=== PATIENT | male | born 1960 | race African-American/Black ===

== ENCOUNTER 2017-11-17 14:28 | Inpatient (IN) | payer MEDICAID, OTHER ==
[~2017-11-17] VITALS: Ht 185.4 cm; Wt 70.3 kg
[~2017-11-17 14:28] MED LIST: AMLO1CAP6 PO; CARI350T27 PO; TAMS-11 PO; VICODIN PO; ZOLP10TA6 PO
[2017-11-17] MEDS ORDERED: SODIUM CHLORIDE 0.9% 1,000 ML IV ONE (14:57)
[2017-11-17] MEDS ORDERED: ONDANSETRON HCL 4MG/2ML VIAL IV STA (14:57)
[2017-11-17] MEDS ORDERED: MORPHINE SULFATE 4 MG/ML CPJ (NOT FOR IM USE) IV STA (14:57)
[2017-11-17 15:35] LABS: CHLORIDE 103 mEq/L (98-107); PROTHROMBIN TIME 9.9 sec (9.4-11.6)
[2017-11-17 15:40] LABS: BASOPHILS % 0.2 % (0.0-2.0); EOSINOPHILS % 1.4 % (0.0-5.0); HEMATOCRIT. 36.8 % (42.0-52.0); HEMOGLOBIN. 12.5 g/dL (14.0-18.0); LYMPHOCYTES % 20.2 % (20.0-50.0); MEAN CORPUSCULAR HEMOGLOBIN 31.2 pg (28.0-32.0); MEAN CORPUSCULAR VOLUME 91.4 fL (80.0-94.0); MEAN PLATELET VOLUME 7.9 fl (7.4-10.4); NEUTROPHILS % 69.2 % (40.0-76.0); PLATELET 232 x1000/uL (130-400); RED BLOOD CELL COUNT 4.02 mill/uL (4.7-6.1); RED CELL DISTRIBUTION WIDTH 14.7 % (11.6-14.6)
[2017-11-17] MEDS ORDERED: IOHEXOL-300 100 ML BOTTLE ONE (17:54)
[2017-11-17 18:13] LABS: CLARITY URINE CLEAR (CLEAR); COLOR URINE YELLOW (YELLOW); KETONES URINE TRACE (NEGATIVE); LEUKOCYTE ESTERASE URINE NEGATIVE (NEGATIVE); NITRITE URINE NEGATIVE (NEGATIVE); OCCULT BLOOD URINE NEGATIVE (NEGATIVE); PH URINE 5.5 (4.5-8.0); PROTEIN URINE NEGATIVE (NEGATIVE); SPECIFIC GRAVITY URINE 1.026 (1.005-1.030); UROBILINOGEN URINE 0.2 E.U./dL (0.2-1.0)
[2017-11-17 18:23] LABS: *AMPHETAMINES SCREEN URINE NEGATIVE (NEGATIVE)
[2017-11-17 18:25] LABS: *BARBITURATES SCREEN URINE NEGATIVE (NEGATIVE); *BENZODIAZEPINES SCREEN URINE PRESUMTIVE POSITIVE (NEGATIVE); *COCAINE SCREEN URINE NEGATIVE (NEGATIVE); CANNABINOID URINE SCREEN NEGATIVE (NEGATIVE); METHADONE URINE SCREEN NEGATIVE (NEGATIVE); OPIATES URINE SCREEN PRESUMTIVE POSITIVE (NEGATIVE); PHENCYCLIDINE URINE SCREEN NEGATIVE (NEGATIVE)
[2017-11-17] MEDS ORDERED: FINA5TAB11 PO (18:45)
[2017-11-17] MEDS ORDERED: BICA50TA2 PO (18:48)
[2017-11-17] MEDS ORDERED: HYDROMORPHONE HCL/PF 2MG/ML CPJ IV PRN ×2 (19:15→19:45)
[2017-11-17] MEDS ORDERED: CLONIDINE 0.1MG TABLET PO PRN (19:15)
[2017-11-17] MEDS ORDERED: ONDANSETRON HCL 4MG/2ML VIAL IV PRN (19:15)
[2017-11-17] MEDS ORDERED: MVI, ADULT NO.1 10 ML, FOLIC ACID 1 MG, THIAMINE HCL 100 MG in SODIUM CHLORIDE 0.9% 1,0... IV SCH ×4 (20:00)
[2017-11-17] MEDS: ACETAMINOPHEN 325MG TABLET PO PRN (20:42)
[2017-11-17 21:15] VITALS: BP 140/77
[2017-11-17] MEDS: HYDROMORPHONE HCL/PF 2MG/ML CPJ IV PRN (23:54)
[2017-11-18] VITALS: BP 144/86
[2017-11-18] MEDS: ACETAMINOPHEN 325MG TABLET PO PRN (02:27)
[2017-11-18] MEDS: HYDROMORPHONE HCL/PF 2MG/ML CPJ IV PRN ×5 (03:58→20:31)
[2017-11-18 04:00] VITALS: BP 132/81
[2017-11-18 07:39] LABS: BASOPHILS % 0.2 % (0.0-2.0); EOSINOPHILS % 2.3 % (0.0-5.0); HEMATOCRIT. 32.8 % (42.0-52.0); HEMOGLOBIN. 11.6 g/dL (14.0-18.0); LYMPHOCYTES % 26.3 % (20.0-50.0); MEAN CORPUSCULAR HEMOGLOBIN 32.5 pg (28.0-32.0); MEAN CORPUSCULAR VOLUME 91.5 fL (80.0-94.0); MEAN PLATELET VOLUME 8.3 fl (7.4-10.4); MONOCYTES % 9.5 % (2.0-8.0); NEUTROPHILS % 61.7 % (40.0-76.0); PLATELET 222 x1000/uL (130-400); RED BLOOD CELL COUNT 3.59 mill/uL (4.7-6.1); RED CELL DISTRIBUTION WIDTH 14.7 % (11.6-14.6)
[2017-11-18 08:00] VITALS: BP 127/81
[2017-11-18] MEDS: FAMOTIDINE 20MG TABLET PO SCH ×2 (08:20→20:59)
[2017-11-18] MEDS: AMLODIPINE 5MG TABLET PO SCH (08:21)
[2017-11-18] MEDS: FINASTERIDE 5MG TABLET PO SCH (08:22)
[2017-11-18] MEDS: BENAZEPRIL 10MG TABLET PO SCH (08:22)
[2017-11-18] MEDS: ENOXAPARIN 40MG/0.4ML SYR SUBCUT SCH (08:23)
[2017-11-18 08:24] LABS: CHLORIDE 107 mEq/L (98-107)
[2017-11-18] MEDS: CARISOPRODOL 350 MG TABLET PO SCH ×3 (08:26→16:15)
[2017-11-18 08:31] LABS: LDL CHOLESTEROL 80 mg/dL (5-100)
[2017-11-18 08:32] LABS: HDL CHOLESTEROL 82 mg/dL (40-59)
[2017-11-18] MEDS ORDERED: BICALUTAMIDE 50 MG TABLET PO SCH (09:00)
[2017-11-18] MEDS ORDERED: TAMSULOSIN HCL 0.4MG SR CAPSULE PO SCH (09:00)
[2017-11-18 12:00] VITALS: BP 116/68
[2017-11-18] MEDS: LIPASE/PROTEASE/AMYLASE 4,200/14,200/24,600 UNITS CAP DR PO SCH ×2 (13:03→17:15)
[2017-11-18 14:01] LABS: HEPATITIS B SURFACE ANTIGEN NEGATIVE
[2017-11-18 14:29] LABS: HEPATITIS B CORE AB IGM NEGATIVE
[2017-11-18 14:31] LABS: HEPATITIS A AB IGM NEGATIVE (NEGATIVE)
[2017-11-18] MEDS: NICOTINE 21MG PATCH TD SCH (15:43)
[2017-11-18 16:21] VITALS: BP 124/88
[2017-11-18 20:00] VITALS: BP 121/77
[2017-11-18] MEDS: TAMSULOSIN HCL 0.4MG SR CAPSULE PO SCH (20:59)
[2017-11-19] VITALS: BP 118/81
[2017-11-19] MEDS: HYDROMORPHONE HCL/PF 2MG/ML CPJ IV PRN ×2 (00:24→08:22)
[2017-11-19 04:00] VITALS: BP 123/77
[2017-11-19 06:58] LABS: BASOPHILS % 0.2 % (0.0-2.0); HEMATOCRIT. 33.4 % (42.0-52.0); HEMOGLOBIN. 11.8 g/dL (14.0-18.0); LYMPHOCYTES % 31.5 % (20.0-50.0); MEAN CORPUSCULAR HEMOGLOBIN 32.3 pg (28.0-32.0); MEAN CORPUSCULAR VOLUME 91.8 fL (80.0-94.0); MEAN PLATELET VOLUME 8.4 fl (7.4-10.4); MONOCYTES % 11.1 % (2.0-8.0); NEUTROPHILS % 55.2 % (40.0-76.0); PLATELET 239 x1000/uL (130-400); RED BLOOD CELL COUNT 3.64 mill/uL (4.7-6.1); RED CELL DISTRIBUTION WIDTH 14.8 % (11.6-14.6)
[2017-11-19 07:32] LABS: CHLORIDE 103 mEq/L (98-107)
[2017-11-19 07:37] LABS: AMYLASE 184 IU/L (25-115)
[2017-11-19] MEDS: TAMSULOSIN HCL 0.4MG SR CAPSULE PO SCH (08:21)
[2017-11-19] MEDS: AMLODIPINE 5MG TABLET PO SCH (08:21)
[2017-11-19] MEDS: BENAZEPRIL 10MG TABLET PO SCH (08:21)
[2017-11-19] MEDS: FAMOTIDINE 20MG TABLET PO SCH (08:21)
[2017-11-19] MEDS: CARISOPRODOL 350 MG TABLET PO SCH (08:21)
[2017-11-19] MEDS: FINASTERIDE 5MG TABLET PO SCH (08:21)
[2017-11-19] MEDS: ENOXAPARIN 40MG/0.4ML SYR SUBCUT SCH (08:22)
[2017-11-19] MEDS: NICOTINE 21MG PATCH TD SCH (08:22)
[2017-11-19] MEDS: LIPASE/PROTEASE/AMYLASE 4,200/14,200/24,600 UNITS CAP DR PO SCH (08:22)
[2017-11-19 09:08] VITALS: BP 128/78
== END 2017-11-19 10:15 | disposition home or self-care (01) | DRG 282 ==
LOC: ER 14:28 → ENRESERV 20:26 → 8WST 21:15
PROVIDERS: ADMIT Internal Medicine Geriatric Medicine; ATTEND Internal Medicine Geriatric Medicine
DX: K85.90 Acute pancreatitis without necrosis or infection, unspecified (principal); C61 Malignant neoplasm of prostate; G90.9 Disorder of the autonomic nervous system, unspecified; Z89.611 Acquired absence of right leg above knee; F11.20 Opioid dependence, uncomplicated; D63.8 Anemia in other chronic diseases classified elsewhere; I10 Essential (primary) hypertension; G89.4 Chronic pain syndrome; F10.20 Alcohol dependence, uncomplicated; Z99.3 Dependence on wheelchair; Z85.07 Personal history of malignant neoplasm of pancreas; Z79.899 Other long term (current) drug therapy; Z92.3 Personal history of irradiation; K86.1 Other chronic pancreatitis
CPT/HCPCS: 36415; 71045; 74177; 80048; 80053; 80061; 80076; 80305; 81003; 82150; 83690; 83880; 84484; 85025; 85610; 86301; 86705; 86709; 86803; 87340; 93005; 96361; 96374; 96375; 97161; 99285; G0482; J1170; J1650; J2270; J2405; J3411; J3490; J7030; Q9967

== ENCOUNTER 2018-03-09 17:44 | Emergency (ER) | payer MEDICAID, OTHER ==
[~2018-03-09] VITALS: Ht 185.4 cm; Wt 71.0 kg
[~2018-03-09 17:44] MED LIST changes: +BICA50TA2 PO; +FINA5TAB11 PO
[2018-03-09] MEDS ORDERED: HYDROCODONE/ACETAMINOPHEN 5/325MG TABLET PO STA (18:06)
[2018-03-09 19:21] LABS: CLARITY URINE CLEAR (CLEAR); COLOR URINE DARK YELLOW (YELLOW); KETONES URINE NEGATIVE (NEGATIVE); LEUKOCYTE ESTERASE URINE TRACE (NEGATIVE); NITRITE URINE POSITIVE (NEGATIVE); OCCULT BLOOD URINE NEGATIVE (NEGATIVE); PROTEIN URINE NEGATIVE (NEGATIVE); SPECIFIC GRAVITY URINE 1.013 (1.005-1.030)
[2018-03-09 19:24] LABS: BASOPHILS % 0.9 % (0.0-2.0); HEMATOCRIT. 36.8 % (42.0-52.0); HEMOGLOBIN. 12.6 g/dL (14.0-18.0); MEAN CORPUSCULAR HEMOGLOBIN 31.7 pg (28.0-32.0); MEAN CORPUSCULAR VOLUME 92.8 fL (80.0-94.0); MEAN PLATELET VOLUME 9.3 fl (7.4-10.4); MONOCYTES % 9.5 % (2.0-8.0); NEUTROPHILS % 67.6 % (40.0-76.0); PLATELET 313 x1000/uL (130-400); RED BLOOD CELL COUNT 3.97 mill/uL (4.7-6.1); RED CELL DISTRIBUTION WIDTH 15.1 % (11.6-14.6)
[2018-03-09 19:27] LABS: CHLORIDE 107 mEq/L (98-107)
[2018-03-09] MEDS ORDERED: LORAZEPAM 2MG/ML CPJ IV ONE (20:00)
[2018-03-09] MEDS ORDERED: CEFTRIAXONE 1 G PREMIX 50 ML IV ONE (21:00)
[2018-03-09] MEDS ORDERED: HYDROMORPHONE HCL/PF 2MG/ML CPJ IV ONE (21:00)
[2018-03-09 23:08] VITALS: BP 131/77
== END 2018-03-09 23:09 | disposition home or self-care (01) ==
LOC: ER 18:03
DX: R33.9 Retention of urine, unspecified (principal); N39.0 Urinary tract infection, site not specified; I10 Essential (primary) hypertension; F17.200 Nicotine dependence, unspecified, uncomplicated; Z98.890 Other specified postprocedural states
CPT/HCPCS: 36415; 51702; 80053; 81003; 85025; 87086; 96365; 96375; 99284; 99406; J0696; J1170; J2060; Z7610; A4315

== ENCOUNTER 2018-05-28 23:33 | Emergency (ER) | payer OTHER ==
[~2018-05-28] VITALS: Ht 172.7 cm; Wt 72.0 kg
[~2018-05-28 23:33] MED LIST changes: -BICA50TA2 PO; +BICA50TA48 PO
[2018-05-29 01:49] LABS: BASOPHILS % 1.3 % (0.0-2.0); EOSINOPHILS % 1.5 % (0.0-5.0); HEMATOCRIT. 42.8 % (42.0-52.0); HEMOGLOBIN. 14.3 g/dL (14.0-18.0); LYMPHOCYTES % 35.3 % (20.0-50.0); MEAN CORPUSCULAR HEMOGLOBIN 32.1 pg (28.0-32.0); MEAN CORPUSCULAR VOLUME 96.2 fL (80.0-94.0); MEAN PLATELET VOLUME 7.5 fl (7.4-10.4); MONOCYTES % 11.6 % (2.0-8.0); NEUTROPHILS % 50.3 % (40.0-76.0); PLATELET 309 x1000/uL (130-400); RED BLOOD CELL COUNT 4.45 mill/uL (4.7-6.1); RED CELL DISTRIBUTION WIDTH 17.4 % (11.6-14.6)
[2018-05-29 01:55] LABS: CLARITY URINE CLEAR (CLEAR); COLOR URINE YELLOW (YELLOW); KETONES URINE NEGATIVE (NEGATIVE); LEUKOCYTE ESTERASE URINE NEGATIVE (NEGATIVE); NITRITE URINE NEGATIVE (NEGATIVE); OCCULT BLOOD URINE NEGATIVE (NEGATIVE); PROTEIN URINE NEGATIVE (NEGATIVE); SPECIFIC GRAVITY URINE 1.003 (1.005-1.030); UROBILINOGEN URINE 0.2 E.U./dL (0.2-1.0)
[2018-05-29 01:58] LABS: CHLORIDE 110 mEq/L (98-107)
[2018-05-29] MEDS ORDERED: ACETAMINOPHEN 325MG TABLET PO ONE (02:00)
[2018-05-29 02:15] LABS: *AMPHETAMINES SCREEN URINE NEGATIVE (NEGATIVE); *BARBITURATES SCREEN URINE NEGATIVE (NEGATIVE); *BENZODIAZEPINES SCREEN URINE PRESUMTIVE POSITIVE (NEGATIVE); *COCAINE SCREEN URINE NEGATIVE (NEGATIVE); CANNABINOID URINE SCREEN NEGATIVE (NEGATIVE); METHADONE URINE SCREEN NEGATIVE (NEGATIVE); OPIATES URINE SCREEN PRESUMTIVE POSITIVE (NEGATIVE); PHENCYCLIDINE URINE SCREEN NEGATIVE (NEGATIVE)
[2018-05-29 03:33] LABS: ETHANOL BLOOD 358 mg/dL
[2018-05-29] MEDS ORDERED: FOLIC ACID 1 MG, THIAMINE HCL 100 MG, MVI, ADULT NO.1 10 ML in DEXTROSE 5% WATER 1,000 ML IV ONE ×4 (03:45)
[2018-05-29 06:22] VITALS: BP 102/69
== END 2018-05-29 07:17 | disposition home or self-care (01) ==
LOC: ER 23:43
DX: F10.129 Alcohol abuse with intoxication, unspecified (principal); I10 Essential (primary) hypertension; Z98.890 Other specified postprocedural states; Y90.8 Blood alcohol level of 240 mg/100 ml or more; Z79.899 Other long term (current) drug therapy
CPT/HCPCS: 36415; 70450; 71045; 80053; 80305; 81003; 85025; 96365; 96366; 99285; G0482; J3411; J3490; J7070; Z7610

== ENCOUNTER 2018-08-12 11:07 | Emergency (ER) | payer MEDICAID, OTHER ==
[~2018-08-12] VITALS: Ht 182.9 cm; Wt 75.0 kg
[2018-08-12 11:12] VITALS: BP 135/78
[2018-08-12] MEDS ORDERED: HYDROCODONE/ACETAMINOPHEN 5/325MG TABLET PO ONE (12:30)
[2018-08-12] MEDS ORDERED: HYDROCODONE/ACETAMINOPHEN 5/325MG TABLET ONE (12:54)
[2018-08-12] MEDS ORDERED: CEPHALEXIN 250MG CAPSULE PO ONE (13:00)
== END 2018-08-12 13:12 | disposition home or self-care (01) ==
LOC: ER 11:55
DX: S60.466A Insect bite (nonvenomous) of right little finger, initial encounter (principal); F17.200 Nicotine dependence, unspecified, uncomplicated; Z79.899 Other long term (current) drug therapy; W57.XXXA Bitten or stung by nonvenomous insect and other nonvenomous arthropods, initial encounter; Y93.89 Activity, other specified; Y92.89 Other specified places as the place of occurrence of the external cause; Y99.8 Other external cause status
CPT/HCPCS: 99283

== ENCOUNTER 2020-05-14 14:21 | Emergency (ER) | payer OTHER ==
[~2020-05-14] VITALS: Ht 172.7 cm; Wt 75.0 kg
[2020-05-14] MEDS ORDERED: DIAZEPAM 2 MG TABLET PO ONE (18:00)
[2020-05-14] MEDS ORDERED: HYDROCODONE/ACETAMINOPHEN 5/325MG TABLET PO ONE (18:00)
[2020-05-14 18:01] LABS: EOSINOPHILS % 2.5 % (0.0-5.0); HEMATOCRIT. 36.6 % (42.0-52.0); HEMOGLOBIN. 12.2 g/dL (14.0-18.0); LYMPHOCYTES % 23.7 % (20.0-50.0); MEAN CORPUSCULAR HEMOGLOBIN 29.4 pg (28.0-32.0); MEAN CORPUSCULAR VOLUME 87.9 fL (80.0-94.0); MEAN PLATELET VOLUME 8.1 fl (7.4-10.4); MONOCYTES % 7.7 % (2.0-8.0); NEUTROPHILS % 65.1 % (40.0-76.0); PLATELET 303 x1000/uL (130-400); RED BLOOD CELL COUNT 4.16 mill/uL (4.7-6.1); RED CELL DISTRIBUTION WIDTH 13.8 % (11.6-14.6)
[2020-05-14 18:07] LABS: CHLORIDE 109 mEq/L (98-107)
[2020-05-14 18:35] LABS: CLARITY URINE CLEAR (CLEAR); COLOR URINE YELLOW (YELLOW); KETONES URINE NEGATIVE (NEGATIVE); LEUKOCYTE ESTERASE URINE NEGATIVE (NEGATIVE); NITRITE URINE NEGATIVE (NEGATIVE); OCCULT BLOOD URINE NEGATIVE (NEGATIVE); PROTEIN URINE NEGATIVE (NEGATIVE); SPECIFIC GRAVITY URINE 1.026 (1.005-1.030); UROBILINOGEN URINE 0.2 E.U./dL (0.2-1.0)
[2020-05-14] MEDS ORDERED: MORPHINE SULFATE 4 MG/ML CPJ (NOT FOR IM USE) IV ONE (19:00)
[2020-05-14 22:54] VITALS: BP 152/80
== END 2020-05-14 22:54 | disposition home or self-care (01) ==
LOC: ER 14:21
DX: R10.9 Unspecified abdominal pain (principal); M79.18 Myalgia, other site; Z85.46 Personal history of malignant neoplasm of prostate; Z79.899 Other long term (current) drug therapy
CPT/HCPCS: 36415; 80053; 81003; 85025; 87086; 93005; 96374; 99283; J2270

== ENCOUNTER 2021-06-29 15:32 | Emergency (ER) | payer OTHER ==
[~2021-06-29] VITALS: Ht 170.2 cm; Wt 86.0 kg
[2021-06-29] MEDS ORDERED: ACETAMINOPHEN 325MG TABLET PO ONE (20:15)
[2021-06-29] MEDS ORDERED: HYDROCODONE/ACETAMINOPHEN 5/325MG TABLET PO ONE (20:30)
[2021-06-29 21:01] VITALS: BP 115/79
[2021-06-29] MEDS ORDERED: GABA-529 MT (21:01)
[2021-06-29] MEDS ORDERED: ACET-2708 MT (21:01)
== END 2021-06-29 21:59 | disposition home or self-care (01) ==
LOC: ER 15:32
DX: S63.502A Unspecified sprain of left wrist, initial encounter (principal); E11.9 Type 2 diabetes mellitus without complications; I10 Essential (primary) hypertension; Z89.611 Acquired absence of right leg above knee; Z79.899 Other long term (current) drug therapy; W05.0XXA Fall from non-moving wheelchair, initial encounter; Y93.89 Activity, other specified; Y92.89 Other specified places as the place of occurrence of the external cause; Y99.8 Other external cause status
CPT/HCPCS: 29125; 73110; 99283

== ENCOUNTER 2023-08-11 21:37 | Emergency (ER) | payer OTHER ==
[~2023-08-11] VITALS: Ht 182.9 cm; Wt 80.0 kg
[~2023-08-11 21:37] MED LIST changes: +ACET-2708 MT; +GABA-529 MT
[2023-08-11 21:55] VITALS: O2SAT 99
[2023-08-11] MEDS ORDERED: ACETAMINOPHEN 325MG TABLET PO STA (22:16)
[2023-08-11 23:04] LABS: BASOPHILS % 0.2 % (0.0-2.0); EOSINOPHILS % 0.4 % (0.0-5.0); HEMATOCRIT. 48.8 % (42.0-52.0); HEMOGLOBIN. 16.4 g/dL (14.0-18.0); LYMPHOCYTES % 38.6 % (20.0-50.0); MEAN CORPUSCULAR HEMOGLOBIN 32.1 pg (28.0-32.0); MEAN CORPUSCULAR HGB CONC 33.6 g/dL (31.0-37.0); MEAN CORPUSCULAR VOLUME 95.6 fL (80.0-94.0); MEAN PLATELET VOLUME 8.7 fl (7.4-10.4); MONOCYTES % 9.7 % (2.0-8.0); NEUTROPHILS % 51.1 % (40.0-76.0); PLATELET 258 x1000/uL (130-400); WHITE BLOOD COUNT 3.5 x1000/uL (4.5-11.0)
[2023-08-11 23:11] VITALS: TEMP 98
[2023-08-11 23:18] LABS: ALANINE AMINOTRANSFERASE 103 IU/L (10-49); ALBUMIN 4.1 g/dL (3.2-4.8); ASPARTATE AMINOTRANSFERASE 212 IU/L (<34); BILIRUBIN TOTAL 0.9 mg/dL (0.1-1.0); CALCIUM 9.3 mg/dL (8.7-10.4); CARBON DIOXIDE 16 mEq/L (21-32); CHLORIDE 103 mEq/L (98-107); CREATININE 0.7 mg/dL (0.6-1.3); ETHANOL BLOOD 41 mg/dL (<10); GLUCOSE 65 mg/dL (70-105); PROTEIN TOTAL 8.2 g/dL (6.0-8.3); SODIUM 138 mEq/L (136-145); UREA NITROGEN BLOOD 11 mg/dL (9-23)
[2023-08-11 23:19] LABS: TROPONIN I HIGH SENSITIVITY < 4 ng/L (3.0-53)
[2023-08-12] MEDS ORDERED: ONDANSETRON 4MG ODT PO NR (00:15)
[2023-08-12] MEDS ORDERED: KETOROLAC 60MG/2ML VIAL IM ONE (02:15)
[2023-08-12] MEDS ORDERED: KETOROLAC 60MG/2ML VIAL IM NR (05:45)
[2023-08-12 06:15] VITALS: BP 154/87; PULSE 87; RESP 19
[2023-08-12] MEDS ORDERED: FAMO-135 MT (11:09)
== END 2023-08-12 06:24 | disposition home or self-care (01) ==
LOC: ER 21:37
DX: M79.10 Myalgia, unspecified site (principal); E11.9 Type 2 diabetes mellitus without complications; I10 Essential (primary) hypertension; Z85.9 Personal history of malignant neoplasm, unspecified; Z79.899 Other long term (current) drug therapy; R41.0 Disorientation, unspecified; W18.39XA Other fall on same level, initial encounter; Y93.89 Activity, other specified; Y92.89 Other specified places as the place of occurrence of the external cause; Y99.8 Other external cause status
CPT/HCPCS: 80053; 80320; 85025; 84484; 36415; 71045; 93005; 99291; 70450; 71250; 96372; Q0162; J1885; G0480

== ENCOUNTER 2023-08-12 06:31 | Emergency (ER) | payer OTHER ==
[~2023-08-12] VITALS: Ht 182.9 cm; Wt 70.3 kg
[2023-08-12 07:53] VITALS: BP 158/104; PULSE 100; RESP 16; TEMP 98.2; O2SAT 100
[2023-08-12] MEDS ORDERED: MAGNESIUM/ALUMINUM HYDROXIDE/SIMETHICONE 30ML UDC PO STA ×2 (08:25)
[2023-08-12] MEDS ORDERED: ONDANSETRON 4MG ODT PO STA (08:25)
[2023-08-12] MEDS ORDERED: FAMOTIDINE 20MG TABLET PO ONE (08:30)
[2023-08-12] MEDS ORDERED: KETOROLAC 15MG/ML VIAL IM ONE (08:30)
[2023-08-12 09:43] LABS: BASOPHILS % 0.2 % (0.0-2.0); EOSINOPHILS % 0.1 % (0.0-5.0); HEMOGLOBIN. 15.2 g/dL (14.0-18.0); LYMPHOCYTES % 27.4 % (20.0-50.0); MEAN CORPUSCULAR HEMOGLOBIN 32.3 pg (28.0-32.0); MEAN CORPUSCULAR HGB CONC 33.8 g/dL (31.0-37.0); MEAN CORPUSCULAR VOLUME 95.5 fL (80.0-94.0); MEAN PLATELET VOLUME 8.8 fl (7.4-10.4); MONOCYTES % 13.9 % (2.0-8.0); NEUTROPHILS % 58.4 % (40.0-76.0); PLATELET 243 x1000/uL (130-400); RED BLOOD CELL COUNT 4.72 mill/uL (4.7-6.1); RED CELL DISTRIBUTION WIDTH 15.7 % (11.6-14.6); WHITE BLOOD COUNT 3.7 x1000/uL (4.5-11.0)
[2023-08-12 10:02] LABS: ALANINE AMINOTRANSFERASE 96 IU/L (10-49); ALBUMIN 4.1 g/dL (3.2-4.8); ASPARTATE AMINOTRANSFERASE 143 IU/L (<34); BILIRUBIN TOTAL 0.8 mg/dL (0.1-1.0); CALCIUM 9.3 mg/dL (8.7-10.4); CARBON DIOXIDE 12 mEq/L (21-32); CHLORIDE 105 mEq/L (98-107); CREATININE 0.8 mg/dL (0.6-1.3); GLUCOSE 155 mg/dL (70-105); POTASSIUM 4.4 mEq/L (3.5-5.1); PROTEIN TOTAL 7.9 g/dL (6.0-8.3); SODIUM 137 mEq/L (136-145); UREA NITROGEN BLOOD 14 mg/dL (9-23)
[2023-08-12] MEDS ORDERED: FAMO-135 MT (11:09)
[2023-08-12] MEDS ORDERED: KETOROLAC 15MG/ML VIAL IM NR (11:30)
[2023-08-12] MEDS ORDERED: MAGNESIUM/ALUMINUM HYDROXIDE/SIMETHICONE 30ML UDC PO NR (11:30)
[2023-08-12] MEDS ORDERED: ONDANSETRON 4MG ODT PO NR (11:30)
[2023-08-12] MEDS ORDERED: FAMOTIDINE 20MG TABLET PO NR (11:30)
== END 2023-08-12 11:55 | disposition home or self-care (01) ==
LOC: ER 06:31
DX: R10.816 Epigastric abdominal tenderness (principal); E11.9 Type 2 diabetes mellitus without complications; I10 Essential (primary) hypertension; Z85.9 Personal history of malignant neoplasm, unspecified; Z98.890 Other specified postprocedural states
CPT/HCPCS: 99284; 74176; 80053; 83690; 85025; 36415; Q0162; J1885